=== PATIENT | female | born 1980 | race Caucasian/White ===

== ENCOUNTER 2021-04-13 16:56 | Outpatient (CLI) | payer OTHER ==
[2021-04-13 21:00] LABS: BASOPHILS # (AUTO) 0.1 10^3/uL (0.0-0.1); BASOPHILS % (AUTO) 1.6 %; EOSINOPHILS # (AUTO) 0.3 10^3/uL (0.0-0.7); EOSINOPHILS % (AUTO) 5.1 %; HCT - HEMATOCRIT 40.4 % (37.0-47.0); HGB - HEMOGLOBIN 13.1 g/dL (12.0-16.0); LYMPHOCYTES % (AUTO) 35.8 %; MEAN CORPUSCULAR HEMOGLOBIN 30.6 pg (27.0-31.0); MEAN CORPUSCULAR HGB CONC 32.4 g/dL (32.0-36.0); MEAN CORPUSCULAR VOLUME 94.4 fL (81.0-99.0); MEAN PLATELET VOLUME 11.1 fL (7.9-10.8); MONOCYTES # (AUTO) 0.4 10^3/uL (0.0-1.0); NEUTROPHILS # (AUTO) 2.7 10^3/uL (1.5-6.6); PLT - PLATELET COUNT 268 10^3/uL (130-450); RED BLOOD COUNT 4.28 10^6/uL (4.20-5.40); RED CELL DISTRIBUTION WIDTH 14.2 % (12.0-15.0); WHITE BLOOD COUNT 5.5 x10^3/uL (4.8-10.8)
[2021-04-13 21:09] LABS: CREATININE 0.7 mg/dL (0.4-1.0)
[2021-04-13 21:25] LABS: CREATININE,URINE 28.5 mg/dL
[2021-04-13 21:28] LABS: THYROID STIMULATING HORMONE 2.03 uIU/mL (0.34-5.60)
[2021-04-13 21:33] LABS: FERRITIN 12.1 ng/mL (11.0-306.8)
[2021-04-13 21:34] LABS: ESTIMATED AVERAGE GLUCOSE 128 mg/dL (70-100); HEMOGLOBIN A1c% 6.1 % (4.27-6.07)
[2021-04-13 21:47] LABS: MICROALBUMIN,URINE < 0.2 mg/dL (0-300.0)
== END 2021-04-13 16:57 | disposition home or self-care (01) ==
LOC: LAB.N 16:56
DX: E10.649 Type 1 diabetes mellitus with hypoglycemia without coma (principal); E03.9 Hypothyroidism, unspecified; B00.52 Herpesviral keratitis; F33.9 Major depressive disorder, recurrent, unspecified
CPT/HCPCS: 36415; 82043; 82565; 82570; 82728; 83036; 84443; 85025

== ENCOUNTER 2021-06-18 15:48 | Outpatient (CLI) | payer OTHER ==
[2021-06-18 21:11] LABS: HCT - HEMATOCRIT 42.3 % (37.0-47.0); HGB - HEMOGLOBIN 13.7 g/dL (12.0-16.0); MEAN CORPUSCULAR HEMOGLOBIN 30.8 pg (27.0-31.0); MEAN CORPUSCULAR HGB CONC 32.4 g/dL (32.0-36.0); MEAN CORPUSCULAR VOLUME 95.1 fL (81.0-99.0); MEAN PLATELET VOLUME 10.4 fL (7.9-10.8); RED BLOOD COUNT 4.45 10^6/uL (4.20-5.40); RED CELL DISTRIBUTION WIDTH 13.1 % (12.0-15.0); WHITE BLOOD COUNT 3.3 x10^3/uL (4.8-10.8)
[2021-06-18 21:21] LABS: ESTIMATED AVERAGE GLUCOSE 137 mg/dL (70-100); HEMOGLOBIN A1c% 6.4 % (4.27-6.07)
[2021-06-18 21:35] LABS: % IRON SATURATION 8 % (20-50); ALBUMIN 4.1 g/dL (3.2-5.5); ALBUMIN/GLOBULIN RATIO 1.4 (1.0-2.2); ALKALINE PHOSPHATASE 58 IU/L (42-121); ALT ALANINE AMINOTRANSFERASE 28 IU/L (10-60); AST ASPARTATE AMINOTRANSFERASE 43 IU/L (10-42); BILIRUBIN,TOTAL < 0.2 mg/dL (0.2-1.0); BUN - BLOOD UREA NITROGEN 11 mg/dL (6-20); CALCIUM 8.8 mg/dL (8.5-10.3); CARBON DIOXIDE - CO2 28 mmol/L (21-32); CHLORIDE 100 mmol/L (101-111); CHOL/HDL RATIO 2.6 (<4.4); CHOLESTEROL 226 mg/dL; CREATININE 0.8 mg/dL (0.4-1.0); GFR - MDRD 79 (>89); GLUCOSE 139 mg/dL (70-100); HDL CHOLESTEROL 86 mg/dL; IRON 28 ug/dL (28-170); LDL CHOLESTEROL,CALCULATED 125 mg/dL; LDL/HDL RATIO 1.5 (<4.4); POTASSIUM 3.7 mmol/L (3.5-5.0); SODIUM 137 mmol/L (135-145); TOTAL IRON BINDING CAPACITY 349 ug/dL (250-450); TRANSFERRIN 249 mg/dL (192-382); TRIGLYCERIDES 74 mg/dL; VLDL CHOLESTEROL 15 mg/dL
[2021-06-18 21:45] LABS: FERRITIN 25.1 ng/mL (11.0-306.8)
== END 2021-06-18 15:49 | disposition home or self-care (01) ==
LOC: LAB.N 15:48
PROVIDERS: ATTEND Family Medicine
DX: K91.2 Postsurgical malabsorption, not elsewhere classified (principal)
CPT/HCPCS: 36415; 80053; 80061; 82306; 82607; 82728; 82746; 83036; 83540; 83721; 83970; 84466; 84590; 84630; 85027

== ENCOUNTER 2021-06-27 06:40 | Outpatient (CLI) | payer OTHER ==
--- NOTE | 2021-06-27 13:30 | Ultrasound Report ---
PROCEDURE: Abdomen Complete INDICATIONS: GASTROESOPHAGEAL REFLUX DISEASE TECHNIQUE: Real-time scanning was performed of the abdominal and retroperitoneal organs, with image documentatio n. COMPARISON: None. FINDINGS: Liver: Normal size. Increased in echogenicity. Gallbladder: Gallbladder is nondistended. No stones or sludge. No gallbladder wall thickening. No per icholecystic fluid. Negative sonographic Barba sign. Biliary ducts: Intrahepatic bile ducts are non-dilated. Extrahepatic bile duct is not well seen. Pancreas: Visualized portions of the pancreas are sonographically normal. Spleen: Spleen is normal in size and homogeneous in echotexture. Measures 9.7 cm. Kidneys: Kidneys are normal in size and echotexture. Right kidney measures 11.7 cm long; left kidne y measures 11.9 cm long. No hydronephrosis or nephrolithiasis. No solid masses. Aorta: Visualized aorta is normal in caliber at less than 3 cm. Iliacs: Proximal common iliac arteries are normal in caliber at less than 2.5 cm. IVC: Intrahepatic inferior vena cava is patent. Miscellaneous: No free abdominal fluid. IMPRESSION: 1. No acute cholecystitis. No gallstones. 2. Increased echogenicity of the hepatic parenchyma. This is most commonly seen in hepatic steatosis. Other forms of hepatocellular disease could have a similar appearance. 3. No hydronephrosis. Reviewed by: Marcin Freed MD on 06/27/2021 1:29 PM PST Approved by: Marcin Freed MD on 06/27/2021 1:29 PM PST Station ID: [id number]
== END 2021-06-27 06:41 | disposition home or self-care (01) ==
LOC: DI 06:40
PROVIDERS: ATTEND Registered Nurse
DX: K21.9 Gastro-esophageal reflux disease without esophagitis (principal); R10.13 Epigastric pain; R93.2 Abnormal findings on diagnostic imaging of liver and biliary tract

== ENCOUNTER 2021-10-11 17:44 | Outpatient (CLI) | payer OTHER ==
[2021-10-11 20:42] LABS: ESTIMATED AVERAGE GLUCOSE 117 mg/dL (70-100); HEMOGLOBIN A1c% 5.7 % (4.27-6.07)
[2021-10-11 20:44] LABS: CALCIUM 9.2 mg/dL (8.5-10.3); CREATININE 0.8 mg/dL (0.4-1.0); POTASSIUM 3.7 mmol/L (3.5-5.0)
[2021-10-11 20:46] LABS: CREATININE,URINE 79.3 mg/dL; MICROALBUM/CREATININE RATIO,UR 3.8 ug/mg (<30.0); MICROALBUMIN,URINE 0.3 mg/dL (0-300.0)
[2021-10-11 21:02] LABS: THYROID STIMULATING HORMONE 2.68 uIU/mL (0.34-5.60)
== END 2021-10-11 17:45 | disposition home or self-care (01) ==
LOC: LAB.N 17:44
PROVIDERS: ATTEND Registered Nurse
DX: E10.9 Type 1 diabetes mellitus without complications (principal); E03.9 Hypothyroidism, unspecified
CPT/HCPCS: 36415; 80048; 82043; 82570; 83036; 84443

== ENCOUNTER 2022-06-19 22:25 | Emergency (ER) | payer OTHER ==
[2022-06-19 22:31] VITALS: BP 140/70
[2022-06-19] MEDS ORDERED: INSULIN LISPRO 300 UNIT/3 ML PEN SUBQ STA (22:58)
--- NOTE | 2022-06-19 23:03 | ED Physician Documentation ---
History of Present Illness - Stated complaint Stated Complaint: NEED INSULIN - Chief complaint Chief Complaint: General - History obtained from History obtained from: Patient - Additonal information Additional information: 41-year-old woman with longstanding type 1 diabetes maintained with a pump could not find her lispro tonight and therefore needs to refill the pump. She is feeling fine and her blood sugar is normal. PD PAST MEDICAL HISTORY - Present Medications Home Medications: Ambulatory Orders Medication Instructions Recorded Confirmed Insulin Lispro 2 ml .ROUTE DAILY #30 ml 06/19/22 - Allergies Allergies/Adverse Reactions: Allergies Allergy/AdvReac Type Severity Reaction Status Date / Time No Known Drug Allergies Allergy Verified 06/19/22 22:27 PD ED PE NORMAL - Vitals Vital signs reviewed: Yes - General General: Alert and oriented X 3, No acute distress - Neuro Neuro: Alert and oriented X 3, Normal speech - Psych Psych: Normal mood, Normal affect Results - Vitals Vitals: Vital Signs - 24 hr 06/19/22 22:27 Temperature 36.5 C Heart Rate 70 Respiratory 16 Rate Blood Pressure 140/70 H O2 Saturation 100 Oxygen O2 Source Room air PD Medical Decision Making - ED course ED course: 41-year-old woman needs emergency refill for her insulin pump with lispro. In the hospital we only have lispro KwikPen's but this should get her through the night. Departure - Departure Disposition: Home, Self Care Clinical Impression: Diabetes Qualifiers: Diabetes mellitus type: type 1 Diabetes mellitus complication status: without complication Qualified Code(s): E10.9 - Type 1 diabetes mellitus without complications Condition: Good Record reviewed to determine appropriate education?: Yes Prescriptions: Insulin Lispro 2 ml .ROUTE DAILY #30 ml
== END 2022-06-19 23:28 | disposition home or self-care (01) ==
LOC: ED 22:25
DX: Z76.0 Encounter for issue of repeat prescription (principal); E10.9 Type 1 diabetes mellitus without complications; Z96.41 Presence of insulin pump (external) (internal)
CPT/HCPCS: 99282; A9270

== ENCOUNTER 2022-07-08 07:36 | Outpatient (CLI) | payer OTHER ==
[2022-07-08 12:19] LABS: BASOPHILS # (AUTO) 0.1 10^3/uL (0.0-0.1); BASOPHILS % (AUTO) 1.8 %; EOSINOPHILS # (AUTO) 0.4 10^3/uL (0.0-0.7); EOSINOPHILS % (AUTO) 7.8 %; HCT - HEMATOCRIT 40.2 % (37.0-47.0); HGB - HEMOGLOBIN 12.9 g/dL (12.0-16.0); LYMPHOCYTES # (AUTO) 1.1 10^3/uL (1.5-3.5); LYMPHOCYTES % (AUTO) 24.7 %; MEAN CORPUSCULAR HEMOGLOBIN 30.9 pg (27.0-31.0); MEAN CORPUSCULAR HGB CONC 32.1 g/dL (32.0-36.0); MEAN CORPUSCULAR VOLUME 96.2 fL (81.0-99.0); MEAN PLATELET VOLUME 10.6 fL (7.9-10.8); MONOCYTES # (AUTO) 0.4 10^3/uL (0.0-1.0); NEUTROPHILS # (AUTO) 2.5 10^3/uL (1.5-6.6); NEUTROPHILS % (AUTO) 55.8 %; PLT - PLATELET COUNT 282 10^3/uL (130-450); RED BLOOD COUNT 4.18 10^6/uL (4.20-5.40); RED CELL DISTRIBUTION WIDTH 13.6 % (12.0-15.0); WHITE BLOOD COUNT 4.5 x10^3/uL (4.8-10.8)
[2022-07-08 13:19] LABS: T4 (THYROXINE) 4.92 ug/dL (6.09-12.23)
[2022-07-08 13:24] LABS: THYROID STIMULATING HORMONE 7.64 uIU/mL (0.34-5.60)
[2022-07-08 13:39] LABS: ESTIMATED AVERAGE GLUCOSE 111 mg/dL (70-100); HEMOGLOBIN A1c% 5.5 % (4.27-6.07)
[2022-07-08 13:57] LABS: ALBUMIN 3.9 g/dL (3.2-5.5); ALBUMIN/GLOBULIN RATIO 1.3 (1.0-2.2); ALKALINE PHOSPHATASE 44 IU/L (42-121); ALT ALANINE AMINOTRANSFERASE 12 IU/L (10-60); AST ASPARTATE AMINOTRANSFERASE 20 IU/L (10-42); BILIRUBIN,TOTAL 0.4 mg/dL (0.2-1.0); BUN - BLOOD UREA NITROGEN 19 mg/dL (6-20); CALCIUM 9.1 mg/dL (8.5-10.3); CARBON DIOXIDE - CO2 25 mmol/L (21-32); CHLORIDE 104 mmol/L (101-111); CHOL/HDL RATIO 2.9 (<4.4); CHOLESTEROL 240 mg/dL; CREATININE 0.9 mg/dL (0.4-1.0); GFR - MDRD 68 (>89); GLUCOSE 122 mg/dL (70-100); HDL CHOLESTEROL 82 mg/dL; LDL CHOLESTEROL,CALCULATED 150 mg/dL; LDL/HDL RATIO 1.8 (<4.4); SODIUM 137 mmol/L (135-145); TOTAL PROTEIN 6.9 g/dL (6.7-8.2); TRIGLYCERIDES 41 mg/dL; VLDL CHOLESTEROL 8 mg/dL
[2022-07-08 14:15] LABS: FREE T4 (FREE THYROXINE) 0.64 ng/dL (0.58-1.64)
== END 2022-07-08 07:37 | disposition home or self-care (01) ==
LOC: LAB.N 07:36
PROVIDERS: ATTEND Registered Nurse
DX: E03.9 Hypothyroidism, unspecified (principal); Z13.228 Encounter for screening for other metabolic disorders; Z13.220 Encounter for screening for lipoid disorders; E10.9 Type 1 diabetes mellitus without complications; Z13.0 Encounter for screening for diseases of the blood and blood-forming organs and certain disorders involving the immune mechanism
CPT/HCPCS: 36415; 80053; 80061; 83036; 83721; 84436; 84439; 84443; 84480; 85025

== ENCOUNTER 2022-10-01 12:44 | Outpatient (CLI) | payer OTHER ==
--- NOTE | 2022-10-02 10:55 | Mammography Report ---
BILATERAL DIGITAL SCREENING MAMMOGRAM 3D/2D WITH AUGMENTATION: 10/01/2022 CLINICAL: Family history of breast cancer. Baseline exam. Routine screening. No prior exams were available for comparison. There are scattered areas of fibroglandular density in both breasts (category b / 25%-50% glandular t issue). Bilateral breast implants are present. No significant masses, calcifications, or other findings are seen in either breast. IMPRESSION: NEGATIVE There is no mammographic evidence of malignancy. A 1 year screening mammogram is recommended. Based on the Tyrer Cuzick model (a risk assessment model) the patients lifetime risk is 19.1% and he r 10 year risk is 3.2%. According to the ACR, ACS, and NCCN guidelines, an annual breast MRI exam amari ng with mammogram is recommended if the patients lifetime risk is 20% or greater. This exam was interpreted at Station ID: [id number]. NOTE: For mammograms, a report in lay terms will be sent to the patient. Approximately 15% of breast malignancies will not be visualized mammographically. In the management of a palpable breast mass, a negative mammogram must not discourage biopsy of a clinically suspicious lesion. Electronically Signed By: Nicolás marin/brianna:10/01/2022 16:28:57 letter sent: No_Letter ACR BI-RADS Category 1: Negative 3341F PARENCHYMAL PATTERN: (A) - The breast(s) demonstrate(s) scattered fibroglandular densities. BI-RADS CATEGORY: (1) - 1 Mammogram [id number] 1 year screening LATERALITY: (B)
== END 2022-10-01 12:45 | disposition home or self-care (01) ==
LOC: DI.N 12:44
PROVIDERS: ATTEND Nurse Practitioner
DX: Z12.31 Encounter for screening mammogram for malignant neoplasm of breast (principal); Z98.82 Breast implant status; Z80.3 Family history of malignant neoplasm of breast

== ENCOUNTER 2022-11-22 14:50 | Outpatient (CLI) | payer OTHER ==
[2022-11-22 18:05] LABS: CREATININE,URINE 141.1 mg/dL; MICROALBUM/CREATININE RATIO,UR 5.7 ug/mg (<30.0); MICROALBUMIN,URINE 0.8 mg/dL (0-300.0)
[2022-11-22 18:06] LABS: ALBUMIN 3.8 g/dL (3.2-5.5); CHOL/HDL RATIO 2.4 (<4.4); CHOLESTEROL 238 mg/dL; HDL CHOLESTEROL 101 mg/dL; LDL CHOLESTEROL,CALCULATED 106 mg/dL; TRIGLYCERIDES 153 mg/dL; VLDL CHOLESTEROL 31 mg/dL
[2022-11-22 21:15] LABS: ESTIMATED AVERAGE GLUCOSE 114 mg/dL (70-100); HEMOGLOBIN A1c% 5.6 % (4.27-6.07)
== END 2022-11-22 14:51 | disposition home or self-care (01) ==
LOC: LAB.N 14:50
PROVIDERS: ATTEND Nurse Practitioner
DX: E10.65 Type 1 diabetes mellitus with hyperglycemia (principal); E78.2 Mixed hyperlipidemia
CPT/HCPCS: 36415; 80061; 82040; 82043; 82570; 83036; 83721

== ENCOUNTER 2023-05-08 23:18 | Outpatient (CLI) | payer OTHER | END 2023-05-08 23:19 | disposition EMS.NT | LOC: EMS 23:18 | DX: E11.649 Type 2 diabetes mellitus with hypoglycemia without coma (principal); Z79.4 Long term (current) use of insulin ==

== ENCOUNTER 2023-06-03 12:45 | Outpatient (CLI) | payer OTHER ==
[2023-06-03 17:43] LABS: BASOPHILS # (AUTO) 0.1 10^3/uL (0.0-0.1); BASOPHILS % (AUTO) 0.9 %; EOSINOPHILS # (AUTO) 0.3 10^3/uL (0.0-0.7); EOSINOPHILS % (AUTO) 5.1 %; HGB - HEMOGLOBIN 12.8 g/dL (12.0-16.0); LYMPHOCYTES # (AUTO) 1.3 10^3/uL (1.5-3.5); LYMPHOCYTES % (AUTO) 21.7 %; MEAN CORPUSCULAR HEMOGLOBIN 27.8 pg (27.0-31.0); MEAN CORPUSCULAR HGB CONC 31.2 g/dL (32.0-36.0); MEAN CORPUSCULAR VOLUME 88.9 fL (81.0-99.0); MEAN PLATELET VOLUME 10.4 fL (7.9-10.8); MONOCYTES # (AUTO) 0.5 10^3/uL (0.0-1.0); MONOCYTES % (AUTO) 8.6 %; NEUTROPHILS # (AUTO) 3.7 10^3/uL (1.5-6.6); NEUTROPHILS % (AUTO) 63.4 %; PLT - PLATELET COUNT 383 10^3/uL (130-450); RED BLOOD COUNT 4.61 10^6/uL (4.20-5.40); RED CELL DISTRIBUTION WIDTH 13.5 % (12.0-15.0); WHITE BLOOD COUNT 5.8 x10^3/uL (4.8-10.8)
[2023-06-03 17:50] LABS: H. PYLORIS ANTIGEN STL NEGATIVE (Negative)
[2023-06-03 19:21] LABS: ALBUMIN 4.1 g/dL (3.2-5.5); ALBUMIN/GLOBULIN RATIO 1.4 (1.0-2.2); BILIRUBIN,TOTAL 0.3 mg/dL (0.2-1.0); CALCIUM 9.1 mg/dL (8.5-10.3); CREATININE 0.6 mg/dL (0.6-1.3); POTASSIUM 3.6 mmol/L (3.5-4.5)
== END 2023-06-03 13:00 | disposition home or self-care (01) ==
LOC: LAB.N 12:45
PROVIDERS: ATTEND Physician Assistant Medical
DX: R10.13 Epigastric pain (principal)
CPT/HCPCS: 36415; 80053; 82150; 83690; 85025; 87338

== ENCOUNTER 2023-07-29 07:33 | Outpatient (CLI) | payer OTHER ==
[2023-07-29 12:42] LABS: THYROID STIMULATING HORMONE 0.41 uIU/mL (0.34-5.60)
== END 2023-07-29 07:34 | disposition home or self-care (01) ==
LOC: LAB.N 07:33
PROVIDERS: ATTEND Registered Nurse
DX: E03.9 Hypothyroidism, unspecified (principal); L29.9 Pruritus, unspecified
CPT/HCPCS: 36415; 82239; 84436; 84443; 84480